=== PATIENT | female | born 1985 | race Hispanic/Latino ===

== ENCOUNTER 2017-05-12 22:56 | Emergency (ER) | payer OTHER ==
[2017-05-12 23:54] LABS: Bacteria,Urine 2+ /HPF (Negative); Bilirubin,Urine NEG (Negative); Blood,Urine NEG (Negative); Ketones,Urine NEG (Negative); Leukocyte Esterase,Urine TR (Negative); Mucus,Urine FEW /HPF; Nitrite,Urine NEG (Negative); Protein,Urine <15 mg/dL mg/dL (Negative); RBC,Urine < 1.0 /HPF (0.0-6.0); Urobilinogen,Urine < 2.0 mg/dL (<2.0)
[2017-05-13 00:22] LABS: Basophils % (Auto) 0.6 % (0.0-1.8); Eosinophils % (Auto) 0.1 % (0.0-4.3); Hematocrit 37.5 % (30.3-42.9); Hemoglobin 12.5 gm/dl (10.1-14.3); Mean Corpuscular HGB Conc 33 % (30-34); Mean Corpuscular Hemoglobin 27 pg (28-32); Mean Corpuscular Volume 80 fl (79-97); Platelet Count 207 K/mm3 (140-440); Red Cell Distribution Width 14.7 % (13.2-15.2); White Blood Count 9.7 K/mm3 (4.5-11.0)
[2017-05-13 00:27] LABS: Alanine Aminotransferase 16 units/L (7-56); Albumin 3.7 g/dL (3.9-5); Albumin/Globulin Ratio 1.2 %; Alkaline Phosphatase 93 units/L (35-129); Anion Gap 17 mmol/L; BUN/Creatinine Ratio 18; Blood Urea Nitrogen 9 mg/dL (7-17); Calcium 8.6 mg/dL (8.4-10.2); Carbon Dioxide 23 mmol/L (22-30); Chloride 100.5 mmol/L (98-107); Glucose 89 mg/dL (65-100); Lipase 30 units/L (13-60); Potassium 3.6 mmol/L (3.6-5.0); Sodium 137 mmol/L (137-145); Total Protein 6.7 g/dL (6.3-8.2)
--- NOTE | 2017-05-13 04:45 | Emergency Department Report ---
ED General Adult HPI - General Chief complaint: Chest Pain Stated complaint: CHEST PAIN,SOB,ABD PAIN Time Seen by Provider: 05/13/17 04:37 Source: patient Mode of arrival: Ambulatory Limitations: No Limitations - History of Present Illness Initial comments: Patient is 32 years old female morbidly obese complaining of right-sided chest pain, suprapubic pain and increased urinary frequency. She denied any nausea vomiting. No shortness of breath or fever. - Related Data Allergies Allergy/AdvReac Type Severity Reaction Status Date / Time No Known Allergies Allergy Unverified 05/12/17 23:36 ED Review of Systems ROS: Stated complaint: CHEST PAIN,SOB,ABD PAIN Other details as noted in HPI Comment: All other systems reviewed and negative Constitutional: denies: chills, fever Respiratory: denies: cough, shortness of breath, SOB with exertion Cardiovascular: chest pain. denies: palpitations, dyspnea on exertion Gastrointestinal: abdominal pain. denies: nausea, vomiting Genitourinary: urgency, frequency Neurological: denies: headache, weakness, numbness, paresthesias ED Past Medical Hx - Past Medical History Previous Medical History?: Yes Hx Hypertension: Yes Hx Diabetes: Yes Additional medical history: hernia, ibs, d and c - Surgical History Past Surgical History?: Yes Hx Appendectomy: Yes - Social History Smoking Status: Never Smoker Substance Use Type: None ED Physical Exam - General Limitations: No Limitations General appearance: alert, in no apparent distress - Head Head exam: Present: atraumatic, normocephalic, normal inspection - Eye Eye exam: Present: normal appearance, PERRL - ENT ENT exam: Present: normal exam, normal orophraynx, mucous membranes moist - Neck Neck exam: Present: normal inspection, full ROM. Absent: tenderness, meningismus, lymphadenopathy - Respiratory Respiratory exam: Present: normal lung sounds bilaterally. Absent: respiratory distress, wheezes, rales, rhonchi, chest wall tenderness - Cardiovascular Cardiovascular Exam: Present: regular rate, normal rhythm, normal heart sounds - GI/Abdominal GI/Abdominal exam: Present: soft, normal bowel sounds. Absent: distended, tenderness, guarding, rebound, rigid, diminished bowel sounds, organomegaly, mass, bruit, pulsatile mass, hernia - Extremities Exam Extremities exam: Present: normal inspection, full ROM, normal capillary refill - Back Exam Back exam: Present: normal inspection. Absent: CVA tenderness (R), CVA tenderness (L) - Neurological Exam Neurological exam: Present: alert, oriented X3, CN II-XII intact, normal gait - Skin Skin exam: Present: warm, dry, intact, normal color. Absent: cyanosis ED Course Vital Signs 05/12/17 05/12/17 23:10 23:32 Temperature 97.8 F 97.8 F Pulse Rate 80 76 Respiratory 18 17 Rate Blood Pressure 104/57 104/57 O2 Sat by Pulse 98 99 Oximetry - Reevaluation(s) Reevaluation #1: 05/13/17 04:45 Patient denied any chest pain or shortness of breath. ED Medical Decision Making - Lab Data Result diagrams: 05/12/17 23:52 05/12/17 23:52 - EKG Data -: EKG Interpreted by Me EKG shows normal: sinus rhythm Rate: normal - EKG Data Interpretation: no acute changes - Radiology Data Radiology results: report reviewed Critical care attestation.: If time is entered above; I have spent that time in minutes in the direct care of this critically ill patient, excluding procedure time. ED Disposition Clinical Impression: Chest pain, UTI (urinary tract infection) Disposition: DC-01 TO HOME OR SELFCARE Is pt being admited?: No Condition: Stable Instructions: Chest Pain (ED), Urinary Tract Infection in Women (ED) Referrals: PRIMARY CARE, [Primary Care Provider] - 3-5 Days
[2017-05-13 05:40] VITALS: BP 116/56
== END 2017-05-13 05:55 | disposition home or self-care (01) ==
LOC: ED 22:56
DX: N39.0 Urinary tract infection, site not specified (principal); R07.89 Other chest pain; I10 Essential (primary) hypertension; E11.9 Type 2 diabetes mellitus without complications; Z90.49 Acquired absence of other specified parts of digestive tract
CPT/HCPCS: 36415; 80053; 81001; 83690; 84484; 85025; 93005; 93010; 99284

== ENCOUNTER 2017-06-01 16:36 | Emergency (ER) | payer OTHER ==
[2017-06-01 17:41] LABS: Basophils % (Auto) 0.5 % (0.0-1.8); Eosinophils % (Auto) 0.1 % (0.0-4.3); Hematocrit 39.5 % (30.3-42.9); Hemoglobin 13.6 gm/dl (10.1-14.3); Mean Corpuscular HGB Conc 34 % (30-34); Mean Corpuscular Hemoglobin 27 pg (28-32); Mean Corpuscular Volume 80 fl (79-97); Platelet Count 255 K/mm3 (140-440); Red Blood Count 4.96 M/mm3 (3.65-5.03); Red Cell Distribution Width 14.8 % (13.2-15.2); White Blood Count 10.8 K/mm3 (4.5-11.0)
[2017-06-01 17:58] LABS: Alanine Aminotransferase 13 units/L (7-56); Albumin/Globulin Ratio 1.3 %; Alkaline Phosphatase 91 units/L (35-129); Anion Gap 16 mmol/L; BUN/Creatinine Ratio 20; Blood Urea Nitrogen 10 mg/dL (7-17); Calcium 8.8 mg/dL (8.4-10.2); Carbon Dioxide 25 mmol/L (22-30); Chloride 102.7 mmol/L (98-107); Glucose 110 mg/dL (65-100); Lipase 29 units/L (13-60); Potassium 4.6 mmol/L (3.6-5.0); Sodium 139 mmol/L (137-145)
[2017-06-01 18:21] LABS: Bilirubin,Urine NEG (Negative); Blood,Urine NEG (Negative); Ketones,Urine NEG (Negative); Leukocyte Esterase,Urine TR (Negative); Nitrite,Urine NEG (Negative); Protein,Urine <15 mg/dL mg/dL (Negative); Urobilinogen,Urine < 2.0 mg/dL (<2.0)
[2017-06-01 21:01] VITALS: BP 120/60
== END 2017-06-02 02:13 ==
LOC: ED 16:36
DX: R10.9 Unspecified abdominal pain (principal); R11.11 Vomiting without nausea; Z53.21 Procedure and treatment not carried out due to patient leaving prior to being seen by health care provider
CPT/HCPCS: 36415; 80053; 81001; 83690; 84703; 85025

== ENCOUNTER 2017-06-03 14:51 | Emergency (ER) | payer OTHER ==
[2017-06-03 15:29] LABS: Basophils % (Auto) 0.4 % (0.0-1.8); Eosinophils % (Auto) 0.2 % (0.0-4.3); Hematocrit 38.5 % (30.3-42.9); Mean Corpuscular HGB Conc 34 % (30-34); Mean Corpuscular Hemoglobin 26 pg (28-32); Mean Corpuscular Volume 79 fl (79-97); Platelet Count 236 K/mm3 (140-440); Red Blood Count 4.91 M/mm3 (3.65-5.03); Red Cell Distribution Width 14.7 % (13.2-15.2); White Blood Count 8.9 K/mm3 (4.5-11.0)
[2017-06-03 15:45] LABS: Alanine Aminotransferase 12 units/L (7-56); Albumin 3.9 g/dL (3.9-5); Albumin/Globulin Ratio 1.3 %; Alkaline Phosphatase 97 units/L (35-129); Anion Gap 19 mmol/L; BUN/Creatinine Ratio 22; Blood Urea Nitrogen 11 mg/dL (7-17); Calcium 8.7 mg/dL (8.4-10.2); Carbon Dioxide 23 mmol/L (22-30); Chloride 105.6 mmol/L (98-107); Glucose 107 mg/dL (65-100); Lipase 25 units/L (13-60); Potassium 4.2 mmol/L (3.6-5.0); Sodium 143 mmol/L (137-145); Total Protein 6.8 g/dL (6.3-8.2)
[2017-06-03 15:48] LABS: Bacteria,Urine 1+ /HPF (Negative); Bilirubin,Urine NEG (Negative); Blood,Urine NEG (Negative); Ketones,Urine NEG (Negative); Leukocyte Esterase,Urine TR (Negative); Mucus,Urine FEW /HPF; Nitrite,Urine NEG (Negative); Protein,Urine <15 mg/dL mg/dL (Negative); Urobilinogen,Urine < 2.0 mg/dL (<2.0)
[2017-06-03] MEDS ORDERED: ZOFRAN IV ONE (15:53)
[2017-06-03] MEDS ORDERED: NACL 0.9% 1000 ML 1,000 ML IV ONE (15:53)
[2017-06-03] MEDS ORDERED: SUBLIMAZE IV ONE (15:53)
[2017-06-03] MEDS ORDERED: PEPCID IV ONE (15:53)
[2017-06-03] MEDS ORDERED: NACL ONE (15:56)
--- NOTE | 2017-06-03 15:59 | Emergency Department Report ---
HPI - General Chief Complaint: Abdominal Pain Time Seen by Provider: 06/03/17 15:46 - HPI HPI: Room 19 The patient is a 32-year-old female presenting with chief complaint of abdominal pain. The patient states for the past 3 days she's had midepigastric abdominal pain has been constant in nature. Patient admits to nausea vomiting and diarrhea. Patient denies fever, dysuria or hematuria. Patient denies any other forms of pain. Patient states Aleve helps the pain temporarily. The patient gives the pain a score of 9/10 Location: Abdomen Duration: 3 days Quality: Pain Severity: 9/10 Modifying factors: [see above] Context: [see above] Mode of transportation: [not driving] ED Past Medical Hx - Past Medical History Previous Medical History?: Yes Hx Hypertension: Yes Hx Diabetes: Yes Additional medical history: IBS - Surgical History Past Surgical History?: Yes Hx Cholecystectomy: Yes Hx Appendectomy: Yes Additional Surgical History: Hernia repair with mesh - Family History Family history: no significant - Social History Smoking Status: Never Smoker Substance Use Type: None (denies illicit drug use) - Medications Home Medications: Home Medications Medication Instructions Recorded Confirmed Last Taken Type Ciprofloxacin HCl [Ciprofloxacin 500 mg PO Q12H #14 tab 05/13/17 Unknown Rx TAB] HYDROcodone/APAP 5-325 [[place] 1 - 2 each PO Q6HR PRN #14 tablet 06/03/17 Unknown Rx 5/325] Promethazine [Phenergan TAB] 25 mg PO Q6HR PRN #20 tab 06/03/17 Unknown Rx Promethazine [Phenergan] 25 mg MI Q6HR PRN #5 supp.rect 06/03/17 Unknown Rx ED Review of Systems ROS: Stated complaint: ABD PAIN AT HERNIA Other details as noted in HPI Constitutional: denies: fever Eyes: denies: eye pain ENT: denies: throat pain Cardiovascular: denies: chest pain Gastrointestinal: abdominal pain, nausea, vomiting, diarrhea Genitourinary: denies: dysuria Musculoskeletal: denies: back pain Neurological: denies: headache Physical Exam - Physical Exam Vital Signs: Vital Signs 06/03/17 14:55 Temperature 97.7 F Pulse Rate 78 Respiratory 20 Rate Blood Pressure 100/67 O2 Sat by Pulse 96 Oximetry Physical Exam: GENERAL: The patient is well-developed well-nourished female sitting on stretcher appearing to be in mild discomfort. [] HEENT: Normocephalic. Atraumatic. Extraocular motions are intact. Patient has moist mucous membranes. NECK: Supple. Trachea midline CHEST/LUNGS: Clear to auscultation. There is no respiratory distress noted. HEART/CARDIOVASCULAR: Regular. There is no tachycardia. There is no gallop rub or murmur. ABDOMEN: Abdomen is soft, with discomfort to palpation in the left upper quadrant. There is no rebound or guarding. Patient has normal bowel sounds. There is no abdominal distention. SKIN: There is no rash. There is no edema. There is no diaphoresis. NEURO: The patient is awake, alert, and oriented. The patient is cooperative. The patient has normal speech MUSCULOSKELETAL: There is no evidence of acute injury. ED Course Vital Signs 06/03/17 14:55 Temperature 97.7 F Pulse Rate 78 Respiratory 20 Rate Blood Pressure 100/67 O2 Sat by Pulse 96 Oximetry ED Medical Decision Making - Lab Data Result diagrams: 06/03/17 15:08 06/03/17 15:08 Laboratory Tests 06/03/17 06/03/17 06/03/17 15:08 15:08 15:20 WBC 8.9 RBC 4.91 Hgb 13.0 Hct 38.5 MCV 79 MCH 26 L MCHC 34 RDW 14.7 Plt Count 236 Lymph % (Auto) 25.6 Long % (Auto) 6.2 Eos % (Auto) 0.2 Baso % (Auto) 0.4 Lymph # 2.3 Long # 0.6 Eos # 0.0 Baso # 0.0 Seg Neutrophils % 67.6 Seg Neutrophils # 6.0 Sodium 143 Potassium 4.2 Chloride 105.6 Carbon Dioxide 23 Anion Gap 19 BUN 11 Creatinine 0.5 L Estimated GFR > 60 BUN/Creatinine Ratio 22 Glucose 107 H Calcium 8.7 Total Bilirubin 0.40 AST 12 ALT 12 Alkaline Phosphatase 97 Total Protein 6.8 Albumin 3.9 Albumin/Globulin Ratio 1.3 Lipase 25 Urine Color Yellow Urine Turbidity Clear Urine pH 5.0 Ur Specific [place] 1.014 Urine Protein <15 mg/dl Urine Glucose (UA) Neg Urine Ketones Neg Urine Blood Neg Urine Nitrite Neg Urine Bilirubin Neg Urine Urobilinogen < 2.0 Ur Leukocyte Esterase Tr Urine WBC (Auto) 6.0 Urine RBC (Auto) 3.0 U Epithel Cells (Auto) 5.0 Urine Bacteria (Auto) 1+ Urine Mucus Few - Radiology Data Radiology results: report reviewed (CT abdomen and pelvis), image reviewed (CT abdomen and pelvis) FINAL REPORT EXAM: CT ABDOMEN PELVIS W CON HISTORY: epigastric and left upper quadrant abdominal pain TECHNIQUE: CT abdomen and pelvis with intravenous contrast PRIORS: None. FINDINGS: No acute abnormality identified in the lung bases. No focal abnormality identified within the liver parenchyma. The spleen demonstrates normal size and attenuation. No pancreatic abnormalities seen. The kidneys demonstrate symmetric contrast enhancement. No evidence of hydronephrosis. The adrenal glands are unremarkable Abdominal aorta is normal in caliber. No pathologically enlarged lymph nodes are identified. No signs of free fluid or free air There are 3 large ventral anterior periumbilical abdominal wall hernias containing loops of small and colon. No evidence for colonic or small bowel distention. No inflammatory changes observed within the hernia sacs. Colon is nondistended. No pericolonic inflammatory change. Urinary bladder is unremarkable. IMPRESSION: Abdominal wall hernias containing bowel loops no obstructive pattern observed. Status post cholecystectomy Transcribed By: [facility] Dictated By: CHATO CHEATHAM MD Electronically Authenticated By: CHATO CHEATHAM MD Signed Date/Time: 06/03/171239 DD/ 39 TD/TT: 06/03/171239 - Differential Diagnosis peptic ulcer disease, gastritis, gastroenteritis, irritable bowel syndrome, Critical care attestation.: If time is entered above; I have spent that time in minutes in the direct care of this critically ill patient, excluding procedure time. ED Disposition Clinical Impression: Acute abdominal pain, Nausea vomiting and diarrhea, Ventral hernia Disposition: TO HOME OR SELFCARE Is pt being admited?: No Does the pt Need Aspirin: No Condition: Stable Instructions: Abdominal Pain (ED), Acute Nausea and Vomiting (ED), Ventral Hernia (ED) Additional Instructions: Return to the emergency department immediately should you develop worsening symptoms, fever, inability to tolerate food or liquid or any other concerns. Prescriptions: HYDROcodone/APAP 5-325 [[place] 5/325] 1 - 2 each PO Q6HR PRN #14 tablet PRN Reason: Pain Promethazine [Phenergan TAB] 25 mg PO Q6HR PRN #20 tab PRN Reason: Nausea Promethazine [Phenergan] 25 mg MI Q6HR PRN #5 supp.rect PRN Reason: Vomiting Referrals: PRIMARY CARE, [Primary Care Provider] - 3-5 Days SHAAN VARGAS MD [Staff Physician] - 3-5 Days (Dr. Vargas is a surgeon. Please follow up with him for further evaluation) Time of Disposition: 17:19
[2017-06-03 16:33] VITALS: BP 98/55
--- NOTE | 2017-06-03 16:43 | Cat Scan Report ---
FINAL REPORT EXAM: CT ABDOMEN PELVIS W CON HISTORY: epigastric and left upper quadrant abdominal pain TECHNIQUE: CT abdomen and pelvis with intravenous contrast PRIORS: None. FINDINGS: No acute abnormality identified in the lung bases. No focal abnormality identified within the liver parenchyma. The spleen demonstrates normal size and attenuation. No pancreatic abnormalities seen. The kidneys demonstrate symmetric contrast enhancement. No evidence of hydronephrosis. The adrenal glands are unremarkable Abdominal aorta is normal in caliber. No pathologically enlarged lymph nodes are identified. No signs of free fluid or free air There are 3 large ventral anterior periumbilical abdominal wall hernias containing loops of small and colon. No evidence for colonic or small bowel distention. No inflammatory changes observed within the hernia sacs. Colon is nondistended. No pericolonic inflammatory change. Urinary bladder is unremarkable. IMPRESSION: Abdominal wall hernias containing bowel loops no obstructive pattern observed. Status post cholecystectomy
== END 2017-06-03 17:50 | disposition home or self-care (01) ==
LOC: ED 14:51
DX: K43.9 Ventral hernia without obstruction or gangrene (principal); R10.13 Epigastric pain; R11.2 Nausea with vomiting, unspecified; R19.7 Diarrhea, unspecified; I10 Essential (primary) hypertension; E11.9 Type 2 diabetes mellitus without complications; Z90.49 Acquired absence of other specified parts of digestive tract; Z98.890 Other specified postprocedural states
CPT/HCPCS: 36415; 74177; 80053; 81001; 83690; 85025; 96361; 96374; 96375; 99284; J2405; J3010; J7030; Q9967